=== PATIENT | male | born 1965 | race Hispanic/Latino ===

== ENCOUNTER 2017-06-23 09:51 | Day surgery (SDC) | payer BC ==
[~2017-06-23] VITALS: Ht 167.6 cm; Wt 74.8 kg
[~2017-06-23 09:51] MED LIST: ATENOLOL50 MG OR; CENTRUM SILVER ULTR1 PO; CENTRUM SILVER1 TA2 PO; CYCLOBENZAPR10 MG PO; D3 ADULT1000 UNIT PO; D31000 UNIT PO; E400400 UNIT PO; EQL GARLIC OD1000 MG PO; GARLIC1000 MG PO; GINKGO BILOB60 MG PO; GLIPIZIDE10 MG PO; HM LUTEIN20 MG PO; INVOKANA100 MG PO; JANUVIA100 MG PO; LOMOTIL2.5 MG PO; LORATADINE10 M1 PO; LOSARTAN/HCT1 TA2 PO; LUTEIN20 MG PO; METFORMIN500 MG PO; OMEPRAZOLE20 M1 PO; PERCOCET 10/31 COMBO PO; RANITIDINE150 MG PO; SM POTASSIUM PO; SUPER B COM2 PO; SUPER B-COMPLEX1 TAB PO; TUMERIC CURCUMIN PO; VIBERZI75 MG PO; VIT E COMPLX400 UNIT PO; VITAMIN C500 M4 PO; ZINC50 MG PO
[2017-06-23 13:34] VITALS: BP 142/84
== END 2017-06-23 13:45 | disposition home or self-care (01) | DRG 392 ==
LOC: ENDO 09:51 → ORM 10:45 → ENDO 11:00 → ORM 11:00 → ENDO 11:15 → ORM 11:30 → ENDO 13:45
PROVIDERS: ATTEND Internal Medicine Gastroenterology
PROC: 0DB98ZX Excision of Duodenum, Via Natural or Artificial Opening Endoscopic, Diagnostic (ICD-10-PCS; principal; 2017-06-23)
PROC: 0DB48ZX Excision of Esophagogastric Junction, Via Natural or Artificial Opening Endoscopic, Diagnostic (ICD-10-PCS; 2017-06-23)
DX: K21.9 Gastro-esophageal reflux disease without esophagitis (principal); K29.70 Gastritis, unspecified, without bleeding; B96.81 Helicobacter pylori [H. pylori] as the cause of diseases classified elsewhere; E11.9 Type 2 diabetes mellitus without complications; I10 Essential (primary) hypertension; K57.30 Diverticulosis of large intestine without perforation or abscess without bleeding; K90.0 Celiac disease; R11.0 Nausea; R14.0 Abdominal distension (gaseous); R19.7 Diarrhea, unspecified; K82.8 Other specified diseases of gallbladder; K64.8 Other hemorrhoids

== ENCOUNTER 2020-02-19 16:46 | Emergency (ER) | payer OTHER ==
[~2020-02-19] VITALS: Ht 167.6 cm; Wt 75.0 kg
[~2020-02-19 16:46] MED LIST changes: -ATENOLOL50 MG OR; +ATENOLOL50 MG PO
[2020-02-19] MEDS ORDERED: TENORMIN25 M1 PO (16:51)
[2020-02-19] MEDS ORDERED: QUESTRAN4 G1 PO (16:52)
[2020-02-19] MEDS ORDERED: GLIPIZIDE ER10 M1 PO (16:53)
[2020-02-19] MEDS ORDERED: CLARITIN10 M2 PO (16:54)
[2020-02-19] MEDS ORDERED: HYZAAR1 TA1 PO (16:55)
[2020-02-19] MEDS ORDERED: METFORMIN HCL1000 MG PO (16:56)
[2020-02-19] MEDS ORDERED: [UNRECOGNIZED DRUG - OTHER] EX (16:58)
[2020-02-19] MEDS ORDERED: PETROLEUM JELLY TOP (16:59)
[2020-02-19 19:31] LABS: IMMATURE GRANULOCYTES 0.5 % (0.0-5.0); MEAN CELL VOLUME 79.5 fL CALC (80.0-100.0); MEAN CORPUSCULAR HGB 27.1 pG CALC (26.0-32.0); MEAN CORPUSCULAR HGB CONC 34.1 g/dL CAL (32.0-36.0); NEUT# 12.03 thou/uL (1.82-7.42); RED BLOOD COUNT 5.16 mill/uL (4.70-6.10); RED CELL DISTRI WIDTH 11.9 % (11.5-15.5)
[2020-02-19 19:47] LABS: ALBUMIN 4.6 g/dL (3.2-5.0); ALKALINE PHOSPHATASE 80 u/l (38-126); BILIRUBIN, TOTAL 0.7 mg/dL (0.0-1.4); BUN 11 mg/dL (9-20); BUN/CREATININE RATIO 13 (12-20 (CALC)); CARBON DIOXIDE 25 mmol/l (22-30); CHLORIDE 91 mmol/l (95-108); CREATININE 0.8 mg/dL (0.7-1.3); GFR > 60 ML/MIN (>=60 (CALC)); GFR FOR AFR.AMER. > 60 ML/MIN (>=60 (CALC)); LIPASE 150 u/l (23-300); POTASSIUM 4.2 mmol/l (3.5-5.1); SGOT/AST 106 u/l (17-59); TOTAL PROTEIN 8.2 g/dL (6.3-8.2)
[2020-02-19 19:49] LABS: ANION GAP 14 (6-22 (CALC)); SODIUM 126 mmol/l (137-146)
[2020-02-19 20:19] VITALS: BP 133/99
== END 2020-02-19 20:45 | DRG 156 ==
LOC: ED 16:46
PROVIDERS: Family Medicine
PROC: 0HQ1XZZ Repair Face Skin, External Approach (ICD-10-PCS; principal; 2020-02-19)
DX: S02.2XXA Fracture of nasal bones, initial encounter for closed fracture (principal); S01.81XA Laceration without foreign body of other part of head, initial encounter; E11.65 Type 2 diabetes mellitus with hyperglycemia; M25.522 Pain in left elbow; M25.532 Pain in left wrist; M25.531 Pain in right wrist; M79.641 Pain in right hand; M79.644 Pain in right finger(s); M54.6 Pain in thoracic spine; Y92.149 Unspecified place in prison as the place of occurrence of the external cause; Y04.0XXA Assault by unarmed brawl or fight, initial encounter; Z79.84 Long term (current) use of oral hypoglycemic drugs

== ENCOUNTER 2020-02-23 17:03 | Emergency (ER) | payer OTHER ==
[~2020-02-23] VITALS: Ht 167.6 cm; Wt 75.0 kg
[~2020-02-23 17:03] MED LIST changes: +CLARITIN10 M2 PO; +GLIPIZIDE ER10 M1 PO; +HYZAAR1 TA1 PO; +METFORMIN HCL1000 MG PO; +PETROLEUM JELLY TOP; +QUESTRAN4 G1 PO; +TENORMIN25 M1 PO; +[UNRECOGNIZED DRUG - OTHER] EX
[2020-02-23 17:38] LABS: HEMATOCRIT 38.6 % (39.0-50.0); HEMOGLOBIN 13.2 g/dl (14.0-18.0); IMMATURE GRANULOCYTES 0.7 % (0.0-5.0); MEAN CELL VOLUME 79.6 fL CALC (80.0-100.0); MEAN CORPUSCULAR HGB 27.2 pG CALC (26.0-32.0); MEAN CORPUSCULAR HGB CONC 34.2 g/dL CAL (32.0-36.0); NEUT# 5.44 thou/uL (1.82-7.42); RED BLOOD COUNT 4.85 mill/uL (4.70-6.10); RED CELL DISTRI WIDTH 11.9 % (11.5-15.5)
[2020-02-23 17:51] LABS: ALBUMIN 4.4 g/dL (3.2-5.0); ALKALINE PHOSPHATASE 64 u/l (38-126); ANION GAP 17 (6-22 (CALC)); BILIRUBIN, TOTAL 0.8 mg/dL (0.0-1.4); BUN 10 mg/dL (9-20); BUN/CREATININE RATIO 15 (12-20 (CALC)); CARBON DIOXIDE 21 mmol/l (22-30); CHLORIDE 91 mmol/l (95-108); CREATININE 0.7 mg/dL (0.7-1.3); GFR > 60 ML/MIN (>=60 (CALC)); GFR FOR AFR.AMER. > 60 ML/MIN (>=60 (CALC)); POTASSIUM 4.3 mmol/l (3.5-5.1); SGOT/AST 127 u/l (17-59); SODIUM 124 mmol/l (137-146); TOTAL PROTEIN 7.7 g/dL (6.3-8.2)
[2020-02-23 18:00] LABS: ACT PARTIAL THROMBO TIME 23.1 SECONDS (20.0-32.5); INTERNATIONAL NORMALIZED RATIO 1.1 RATIO (0.7-1.3); PROTHROMBIN TIME 10.6 SECONDS (9.0-12.5)
[2020-02-23 19:00] VITALS: BP 168/110
== END 2020-02-23 19:00 | DRG 151 ==
LOC: ED 17:03
PROC: 2Y41X5Z Packing of Nasal Region using Packing Material (ICD-10-PCS; principal; 2020-02-23)
DX: R04.0 Epistaxis (principal); S02.2XXA Fracture of nasal bones, initial encounter for closed fracture; E11.65 Type 2 diabetes mellitus with hyperglycemia; Y04.2XXA Assault by strike against or bumped into by another person, initial encounter; Z79.84 Long term (current) use of oral hypoglycemic drugs; Z20.828 Contact with and (suspected) exposure to other viral communicable diseases